=== PATIENT | female | born 1990 | race Caucasian/White ===

== ENCOUNTER 2017-06-16 19:26 | Outpatient (CLI) | payer OTHER ==
[2017-06-16 21:00] LABS: ADD UMIC YES; UR ASCORBIC ACID 20 mg/dL (NEGATIVE); UR BACTERIA FEW /HPF (NONE SEEN); UR BILIRUBIN (Dip) NEGATIVE (NEGATIVE); UR BLOOD (Dip) NEGATIVE (NEGATIVE); UR CLARITY CLEAR (CLEAR); UR COLOR YELLOW (YELLOW); UR GLUCOSE (Dip) NEGATIVE (NEGATIVE); UR KETONES (Dip) NEGATIVE (NEGATIVE); UR LEUKOCYTE ESTERASE (Dip) 2+ Leu/ul (NEGATIVE); UR NITRITE (Dip) NEGATIVE (NEGATIVE); UR RBC 1 /HPF (0-5); UR SPECIFIC GRAVITY (Dip) 1.013 (1.003-1.030); UR SQUAMOUS EPITHELIAL CELL FEW /HPF (FEW); UR TOTAL PROTEIN (Dip) NEGATIVE (NEGATIVE); UR UROBILINOGEN (Dip) NEGATIVE (NEGATIVE); UR WBC 2 /HPF (0-5)
== END 2017-06-16 21:35 | disposition home or self-care (01) ==
LOC: OBT 19:26 → L-D 19:30 → OBT 21:35
DX: O36.8130 Decreased fetal movements, third trimester, not applicable or unspecified (principal); Z3A.38 38 weeks gestation of pregnancy
CPT/HCPCS: 76815; 76818; 81001

== ENCOUNTER 2017-06-25 18:26 | Outpatient (CLI) | payer OTHER | END 2017-06-25 20:00 | disposition home or self-care (01) | LOC: OBT 18:26 → L-D 18:27 → OBT 20:00 | DX: O36.8130 Decreased fetal movements, third trimester, not applicable or unspecified (principal); Z3A.40 40 weeks gestation of pregnancy | CPT/HCPCS: 76815; 76818 ==

== ENCOUNTER 2017-06-28 18:28 | Inpatient (IN) | payer OTHER ==
[2017-06-28] MEDS ORDERED: MISOPROSTOL 200 MCG TAB PR (19:00)
[2017-06-28] MEDS ORDERED: LIDOCAINE 1% (MPF) 30 ML INJ INJ (19:00)
[2017-06-28] MEDS ORDERED: CARBOPROST 250 MCG INJ IM (19:00)
[2017-06-28] MEDS ORDERED: OXYTOCIN 30 UNITS/LR 500 ML IV (19:00)
[2017-06-28] MEDS ORDERED: BUTORPHANOL 2 MG INJ IV (19:00)
[2017-06-28] MEDS ORDERED: IBUPROFEN 600 MG TAB PO (19:00)
[2017-06-28] MEDS ORDERED: METHYLERGONOVINE 0.2 MG INJ IM (19:00)
[2017-06-28] MEDS ORDERED: OXYCODONE/ACETAMINOPHEN (5/325) TAB PO (19:30)
[2017-06-28] MEDS: LACTATED RINGER'S 1,000 ML IV (20:23)
[2017-06-28] MEDS: AMPICILLIN 2 GM/NS (PMX) 100 ML IV (20:23)
[2017-06-28 20:51] LABS: ADD MAN DIFF? NO
[2017-06-28 20:58] LABS: WHITE BLOOD COUNT 6.5 10^3/ul (4.8-10.8)
[2017-06-28 20:58] LABS: BASOPHILS % 0.2 % (0.0-2.0); EOSINOPHILS % 0.5 % (0.0-7.0); HEMATOCRIT 39.5 % (37.0-47.0); HEMOGLOBIN 13.5 g/dl (12.0-16.0); LYMPHOCYTES # 1.7 10^3/ul (0.8-2.9); LYMPHOCYTES % 26.4 % (15.0-51.0); MEAN CORPUSCULAR HEMOGLOBIN 28.8 pg (29.0-33.0); MEAN CORPUSCULAR HGB CONC 34.2 g/dl (32.0-37.0); MEAN CORPUSCULAR VOLUME 84.4 fl (82.0-101.0); MEAN PLATELET VOLUME 10.9 fl (7.4-10.4); MONOCYTE # 0.5 10^3/ul (0.3-0.9); MONOCYTES % 7.6 % (0.0-11.0); NEUTROPHIL # 4.2 10^3/ul (1.6-7.5); NEUTROPHILS % 65.1 % (39.0-77.0); PLATELET COUNT 199 10^3/UL (140-415); RED BLOOD COUNT 4.68 10^6/ul (4.20-5.40); RED CELL DISTRIBUTION WIDTH 14.6 % (11.5-14.5)
[2017-06-28 21:14] LABS: INR 0.83; PROTIME 11.5 Sec (11.9-14.9); PT RATIO 0.9
[2017-06-28] MEDS: OXYTOCIN 30 UNITS/LR 500 ML IV (21:16)
[2017-06-28 21:44] LABS: HEPATITIS B SURFACE ANTIGEN NEGATIVE (NEGATIVE)
[2017-06-29] MEDS: AMPICILLIN 1 GM/NS (PMX) 50 ML IV ×4 (00:25→11:58)
[2017-06-29] MEDS: LACTATED RINGER'S 1,000 ML IV ×2 (03:03→04:31)
[2017-06-29] MEDS: FENTAnyl 2MCG/ML-ROPIV 0.2% 100 ML BAG EPI ×2 (05:13→07:44)
[2017-06-29] MEDS ORDERED: FENTAnyl 2MCG/ML-ROPIV 0.2% 100 ML BAG EPI (05:30)
[2017-06-29] MEDS ORDERED: DIPHENHYDRAMINE 50 MG INJ IV (05:30)
[2017-06-29] MEDS ORDERED: NALOXONE (0.4 MG/ML) INJ IV (05:30)
[2017-06-29] MEDS ORDERED: ONDANSETRON 4 MG INJ IV (05:30)
[2017-06-29] MEDS ORDERED: MINERAL OIL LIGHT 10 ML VIAL TOP (12:00)
[2017-06-29] MEDS: OXYTOCIN 30 UNITS/LR 500 ML IV ×2 (12:32→13:16)
[2017-06-29 14:57] LABS: RAPID PLASMA REAGIN NONREACTIVE (NR)
[2017-06-29] MEDS ORDERED: OXYTOCIN 30 UNITS/LR 500 ML IV (16:00)
[2017-06-29] MEDS ORDERED: CARBOPROST 250 MCG INJ IM (16:00)
[2017-06-29] MEDS ORDERED: MISOPROSTOL 200 MCG TAB PR (16:00)
[2017-06-29] MEDS ORDERED: HYDROCODONE/APAP (5/325) TAB PO ×2 (16:00)
[2017-06-29] MEDS ORDERED: ZOLPIDEM 5 MG TAB PO (16:00)
[2017-06-29] MEDS ORDERED: BENZOCAINE 20% 56 ML SPRAY TOP (16:00)
[2017-06-29] MEDS ORDERED: METHYLERGONOVINE 0.2 MG INJ IM (16:00)
[2017-06-29] MEDS: WITCH HAZEL/GLYCERIN PAD PR (17:34)
[2017-06-29] MEDS: IBUPROFEN 600 MG TAB PO ×2 (17:34→23:44)
[2017-06-29] MEDS: CEPHALEXIN 500 MG CAP PO ×2 (17:34→23:44)
[2017-06-29] MEDS: LANOLIN 7 GM TUBE TOP (17:35)
[2017-06-29] MEDS: DIBUCAINE 1% 30 GM OINT PR (17:35)
[2017-06-29] MEDS: LACTATED RINGER'S 1,000 ML IV* ×2 (17:36→23:39)
[2017-06-29] MEDS: MAGNESIUM HYDROXIDE 30ML CUP PO (23:22)
[2017-06-29] MEDS: SENNA/DOCUSATE NA (8.6MG/50MG) TAB PO (23:22)
[2017-06-30] MEDS: IBUPROFEN 600 MG TAB PO ×4 (06:07→23:27)
[2017-06-30] MEDS: CEPHALEXIN 500 MG CAP PO ×4 (06:07→23:27)
[2017-06-30 08:46] LABS: ADD MAN DIFF? NO
[2017-06-30 08:54] LABS: BASOPHILS % 0.2 % (0.0-2.0); EOSINOPHILS % 0.5 % (0.0-7.0); HEMATOCRIT 31.8 % (37.0-47.0); HEMOGLOBIN 10.9 g/dl (12.0-16.0); LYMPHOCYTES # 1.8 10^3/ul (0.8-2.9); LYMPHOCYTES % 22.4 % (15.0-51.0); MEAN CORPUSCULAR HGB CONC 34.3 g/dl (32.0-37.0); MEAN CORPUSCULAR VOLUME 84.6 fl (82.0-101.0); MEAN PLATELET VOLUME 10.8 fl (7.4-10.4); MONOCYTE # 0.6 10^3/ul (0.3-0.9); MONOCYTES % 7.3 % (0.0-11.0); NEUTROPHIL # 5.7 10^3/ul (1.6-7.5); NEUTROPHILS % 69.5 % (39.0-77.0); PLATELET COUNT 158 10^3/UL (140-415); RED BLOOD COUNT 3.76 10^6/ul (4.20-5.40); RED CELL DISTRIBUTION WIDTH 14.8 % (11.5-14.5)
[2017-06-30 08:54] LABS: WHITE BLOOD COUNT 8.2 10^3/ul (4.8-10.8)
[2017-06-30] MEDS: SENNA/DOCUSATE NA (8.6MG/50MG) TAB PO ×2 (09:42→23:27)
[2017-06-30] MEDS: MAGNESIUM HYDROXIDE 30ML CUP PO ×2 (09:42→23:27)
[2017-07-01] MEDS: CEPHALEXIN 500 MG CAP PO ×2 (06:42→12:10)
[2017-07-01] MEDS: IBUPROFEN 600 MG TAB PO ×2 (06:42→12:10)
[2017-07-01] MEDS: DIPHTH/TET/ACEL PERTUSS (ADULT) 0.5 ML VIAL IM* (09:00)
[2017-07-01] MEDS: MEASLES,MUMPS,RUBELLA VACCINE INJ SC* (09:00)
[2017-07-01] MEDS: VARICELLA VACCINE LIVE/PF 1,350 UNIT/0.5 ML ML SC* (09:00)
[2017-07-01] MEDS: SENNA/DOCUSATE NA (8.6MG/50MG) TAB PO (10:10)
[2017-07-01] MEDS: MAGNESIUM HYDROXIDE 30ML CUP PO (10:11)
== END 2017-07-01 15:45 | disposition home or self-care (01) | DRG 775 ==
LOC: PP1 06-29 14:34 → L-D 18:28
PROVIDERS: Obstetrics & Gynecology
PROC: 3E0P7VZ Introduction of Hormone into Female Reproductive, Via Natural or Artificial Opening (ICD-10-PCS; 2017-06-28)
PROC: 10E0XZZ Delivery of Products of Conception, External Approach (ICD-10-PCS; principal; 2017-06-29)
PROC: 0UQKXZZ Repair Hymen, External Approach (ICD-10-PCS; 2017-06-29)
PROC: 0HQ9XZZ Repair Perineum Skin, External Approach (ICD-10-PCS; 2017-06-29)
PROC: 0UQMXZZ Repair Vulva, External Approach (ICD-10-PCS; 2017-06-29)
DX: O48.0 Post-term pregnancy (principal); O70.0 First degree perineal laceration during delivery; Z3A.40 40 weeks gestation of pregnancy; Z37.0 Single live birth
CPT/HCPCS: 62319; 85025; 85610; 85730; 86592; 86850; 86900; 86901; 87340

== ENCOUNTER 2018-04-27 17:01 | Emergency (ER) | payer MEDICAID, OTHER ==
[2018-04-27 19:07] LABS: URINE BLOOD (Dip) POC Negative (NEGATIVE); URINE GLUCOSE (Dip) POC Negative (NEGATIVE); URINE KETONES (Dip) POC Negative (NEGATIVE); URINE LEUKOCYTE EST (Dip) POC 3+ (NEGATIVE); URINE NITRITE (Dip) POC Negative (NEGATIVE); URINE TOTAL PROTEIN POC Negative (NEGATIVE)
== END 2018-04-27 20:14 | disposition home or self-care (01) ==
LOC: FTE 17:01
DX: S30.1XXA Contusion of abdominal wall, initial encounter (principal); N30.00 Acute cystitis without hematuria; R10.2 Pelvic and perineal pain; V43.52XA Car driver injured in collision with other type car in traffic accident, initial encounter
CPT/HCPCS: 73030; 74176; 81003; 81025; 99284-25